=== PATIENT | female | born 1950 | race Caucasian/White ===

== ENCOUNTER 2025-04-15 22:53 | Emergency (ER) | payer MEDICARE ==
[~2025-04-15] VITALS: Ht 157.5 cm; Wt 78.0 kg
[2025-04-16 01:03] VITALS: PULSE 70; RESP 16; TEMP 97.9
[2025-04-16 01:05] VITALS: BP 150/69; PULSE 70; RESP 16; TEMP 97.9; O2SAT 98
== END 2025-04-16 01:11 | disposition home or self-care (01) ==
LOC: FSED 23:54
DX: S90.211A Contusion of right great toe with damage to nail, initial encounter (principal); W22.09XA Striking against other stationary object, initial encounter; Y93.01 Activity, walking, marching and hiking; Y92.89 Other specified places as the place of occurrence of the external cause
CPT/HCPCS: 99284